=== PATIENT | male | born 1960 | race Caucasian/White ===

== ENCOUNTER → 2017-04-13 | Outpatient (CLI) | payer BC | LOC: HEART 5 08:59 | DX: I48.91 Unspecified atrial fibrillation (principal) | CPT/HCPCS: 93306 ==

== ENCOUNTER → 2021-02-17 | Outpatient (CLI) | payer BC ==
[~2021-02-17] MED LIST: ASPIRIN CHEWABL81 MG PO; COREG6.25 MG PO; ELIQUIS5 MG PO; MULTAQ 400 MG400 MG PO; NORVASC 5 MG TAB5 MG PO; SOTALOL120 MG PO; SYNTHROID175 MCG PO
== END ==
LOC: RAD 13:55
DX: R10.9 Unspecified abdominal pain (principal)
CPT/HCPCS: 74018

== ENCOUNTER → 2022-07-26 | Outpatient (CLI) | payer BC | LOC: RAD 15:47 | DX: M25.50 Pain in unspecified joint (principal); M17.12 Unilateral primary osteoarthritis, left knee | CPT/HCPCS: 73560 ==